=== PATIENT | male | born 1985 | race American Indian/Alaskan Native ===

== ENCOUNTER 2018-07-01 23:13 | Emergency (ER) | payer OTHER ==
[2018-07-02 01:00] VITALS: BP 114/75
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
== END 2018-07-02 04:00 | disposition home or self-care (01) ==
LOC: ED 23:13
DX: M54.5 Low back pain (principal); M54.2 Cervicalgia; M79.10 Myalgia, unspecified site; V49.49XA Driver injured in collision with other motor vehicles in traffic accident, initial encounter; Y93.89 Activity, other specified; Y92.89 Other specified places as the place of occurrence of the external cause; Y99.8 Other external cause status
CPT/HCPCS: 72040; 72070; 72100